=== PATIENT | female | born 1965 | race Caucasian/White ===

== ENCOUNTER 2020-11-24 04:33 | Day surgery (SDC) | payer OTHER ==
[2020-11-23 10:19] VITALS: BMI 23.8
[~2020-11-24 04:33] MED LIST: BUPIVACAINE HCL/PF 0.75% 10 ML VIAL NR ONE; IOHEXOL 180 MG/1 ML ML IJ ONE; LIDOCAINE HCL 1% PRESERVATIVE FREE - 30ML VIAL NR ONE
[2020-11-24] MEDS ORDERED: BUPIVACAINE HCL/PF 0.5% (5MG/ML) 10 ML VIAL ONE (07:50)
[2020-11-24 13:07] VITALS: BP 129/73; PULSE 65; TEMP 98.9
== END 2020-11-24 13:05 | disposition home or self-care (01) ==
LOC: JASU-SURG 04:33
PROVIDERS: ATTEND Pain Medicine Pain Medicine
PROC: BR16YZZ Fluoroscopy of Lumbar Facet Joint(s) using Other Contrast (ICD-10-PCS; 2020-11-24)
PROC: 3E0T3BZ Introduction of Anesthetic Agent into Peripheral Nerves and Plexi, Percutaneous Approach (ICD-10-PCS; principal; 2020-11-24 12:22)
DX: M47.816 Spondylosis without myelopathy or radiculopathy, lumbar region (principal)
CPT/HCPCS: 76000-TC-FY